=== PATIENT | male | born 1995 | race Caucasian/White ===

== ENCOUNTER 2019-08-29 11:07 | Outpatient (CLI) | payer OTHER ==
--- NOTE | 2019-08-29 11:47 | ULT ---
SOFT TISSUE NECK ULTRASOUND: HISTORY: Hypothyroidism.. COMPARISON: None. TECHNIQUE: Targeted sonographic imaging of the left and right neck were performed. Imaging of thyroid fossa was also performed. FINDINGS: No sonographic evidence of a thyroid gland. There appear to be right neck lymph nodes below the jaw line with preserved fatty hilum. Largest lymp h node measures 1.2 cm in the maximum dimension. There is a hypoechoic focus in the left neck corresponding to a palpable region measuring 0.5 x 2.3 b y 1.1 cm. Fatty hilum is not observed. IMPRESSION: 1. No sonographic evidence of a thyroid gland. Correlate with medical as well as surgical history. 2. Nonspecific right neck lymph nodes. 3. Hypoechoic focus in the left neck corresponding to palpable lesion. Fatty hilum is not appreciated . Lesion is well circumscribed and is superficial to the sternocleidomastoid muscle. Better interrogation with postcontrast soft tissue neck CT is recommended. Transcribed Date/Time: 08/29/2019 11:57 AM
== END 2019-08-29 11:08 | disposition home or self-care (01) ==
LOC: SCSULT 11:07
PROVIDERS: ATTEND Internal Medicine Endocrinology, Diabetes & Metabolism
DX: E03.9 Hypothyroidism, unspecified (principal)
CPT/HCPCS: 76536

== ENCOUNTER 2019-09-14 07:41 | Outpatient (CLI) | payer OTHER ==
--- NOTE | 2019-09-14 09:08 | CT ---
CT of theneck: 09/14/2019 COMPARISON:None available HISTORY:Hypothyroidism, thyroid ultrasound demonstrating lymph nodes within the neck to 10/14/2019 TECHNIQUE: Serial axial CT imaging at2 mm from theskull base through lung apices with IV contrast. C oronal and sagittal reformatted imaging obtained. Findings:The imaged lung apices are unremarkable. There is mild polypoid mucosal thickening within the left maxillary sinus. Imaged paranasal sinuses a nd mastoid air cells are otherwise unremarkable. The retroantral fat and parapharyngeal fat appears clear bilaterally. Parotid and submandibular gland s appear grossly unremarkable. The tonsillar pillars, epiglottis and preepiglottic fat, hyoid bone, thyroid cartilage, cricoid carti federico, and level of the glottis appear unremarkable. The thyroid gland is nonvisualized. Nonenlarged bilateral level 1 lymph nodes are noted. Mildly enlarged level 2A lymph nodes are noted o n the right measuring up to 1.1 cm in short axis dimension. These nodes however appear to retain a normal fatty hilum. Numerous nonenlarged posterior triangle lymph nodes are noted. There is a cluster of nonspecific mildly prominent nodes in the supraclavicular region on the right m easuring up to 8 mm in short axis dimension. These nodes are rounded and do not definitely demonstrate a normal fatty hilum and are thus nonspecific. Vascular structures of the neck appear pat ent. Review of the osseous structures demonstrates no discrete worrisome lytic or blastic bone lesion. IMPRESSION: Mild nonspecific lymph node prominence as detailed above. This includes mildly prominent level 2A lymph nodes on the right which appear to retain a normal fatty hilum. The mildly prominent nodes within the supraclavicular region are not enlarged but do not demonstrate a normal fatty hilum and thus are nonspecific. Clinical correlation and consideration for follow-up imaging suggested.
[2019-09-14] MEDS ORDERED: Iopamidol 370 76% 100 ML VIAL ONE (14:36)
== END 2019-09-14 07:42 | disposition home or self-care (01) ==
LOC: CT 07:41
PROVIDERS: ATTEND Internal Medicine Endocrinology, Diabetes & Metabolism
DX: E03.9 Hypothyroidism, unspecified (principal)
CPT/HCPCS: 70491; Q9967